=== PATIENT | male | born 1945 | race Hispanic/Latino ===

== ENCOUNTER 2020-06-08 08:03 | Inpatient (IN) | payer MEDICARE ==
[~2020-06-08] VITALS: Ht 162.6 cm; Wt 97.8 kg
[2020-06-08 08:38] LABS: BASOPHILS % (AUTO) 0.1 % (0.0-5.0); HEMATOCRIT 48.4 % (42-54); LYMPHOCYTES % (AUTO) 4.9 % (21.0-51.0); MEAN CORPUSCULAR HEMOGLOBIN 29.9 pg (27.0-33.0); MEAN CORPUSCULAR HGB CONC 33.9 g/dL (32.0-36.0); MEAN CORPUSCULAR VOLUME 88.3 fL (79-99); MONOCYTES % (AUTO) 8.4 % (3.0-13.0); NEUTROPHILS % (AUTO) 85.9 % (40.0-77.0); PLATELET COUNT (AUTO) 330 K/uL (130-400); RED BLOOD CELL COUNT(AUTO) 5.48 MIL/uL (4.50-6.20); RED CELL DISTRIBUTION WIDTH 13.2 % (11.0-15.5); WHITE BLOOD COUNT (AUTO) 15.1 K/uL (4.8-10.8)
[2020-06-08 08:48] LABS: INR 0.98 (0.85-1.15); PROTHROMBIN TIME 10.5 SEC (9.6-11.6)
[2020-06-08 08:51] LABS: ALBUMIN 2.8 g/dL (3.5-5.0); BILIRUBIN,TOTAL 1.1 mg/dL (0.2-1.0); CREATININE 0.9 mg/dL (0.5-1.5); TOTAL PROTEIN, SERUM 7.8 g/dL (6.0-8.3)
[2020-06-08 09:01] LABS: ABG BASE EXCESS 0.8 mmol/L (-2.0-3.0); ABG OXYGEN SATURATION 88.7 % (95.0-99.0); ABG PCO2 34 mmHg (35-48)
[2020-06-08] MEDS ORDERED: DEXAMETHASONE SOD PHOSPHATE 4 MG/ML 1ML VIAL ONE (10:39)
[2020-06-08] MEDS ORDERED: AZITHROMYCIN 500MG+NS 250ML 250 ML IV ONE (10:39)
[2020-06-08] MEDS ORDERED: ENOXAPARIN SODIUM 120 MG/0.8ML SQ ONE (10:41)
[2020-06-08] MEDS ORDERED: CEFTRIAXONE SODIUM 1 GM ONE (10:44)
[2020-06-08] MEDS ORDERED: CLONIDINE HCL 0.1 MG TABLET PO PRN (12:30)
[2020-06-08] MEDS ORDERED: ACETAMINOPHEN 325 MG TAB PO PRN (12:30)
[2020-06-08] MEDS ORDERED: ERGOCALCIFEROL (VITAMIN D2) 50,000 UNIT CAPSULE PO ONE (12:30)
[2020-06-08] MEDS ORDERED: ONDANSETRON HCL 4 MG/2 ML VIAL IVP PRN (12:30)
[2020-06-08] MEDS ORDERED: ACETAMINOPHEN 650 MG SUPPOSITORY RC PRN (12:30)
[2020-06-08] MEDS ORDERED: TEMAZEPAM 15 MG CAPSULE PO PRN (12:30)
[2020-06-08] MEDS ORDERED: PHARMACY COMMUNICATION MISC SCH (12:45)
[2020-06-08 13:05] LABS: CREATINE KINASE, TOTAL 290 U/L (21-232); MYOGLOBIN 333 ng/mL (10-92); TROPONIN I < 0.04 ng/mL (0.00-0.06)
[2020-06-08] MEDS ORDERED: COMPOUND IV REFRIGERATED 1 EACH IVSOLN MISC PRN (15:00)
[2020-06-08] MEDS ORDERED: REMDESIVIR (EUA) 520 200 MG in SODIUM CHLORIDE 0.9% 250 ML IV ONE (15:00)
[2020-06-08] MEDS ORDERED: FUROSEMIDE 20 MG TABLET ONE (15:28)
[2020-06-08 15:51] VITALS: BP 139/78
[2020-06-08] MEDS ORDERED: FUROSEMIDE 20 MG TABLET PO SCH (17:00)
[2020-06-08 19:23] LABS: CREATINE KINASE, TOTAL 325 U/L (21-232); MYOGLOBIN 310 ng/mL (10-92); TROPONIN I < 0.04 ng/mL (0.00-0.06)
[2020-06-08] MEDS ORDERED: ENOXAPARIN SODIUM 60 MG/0.6 ML SQ ONE (22:17)
[2020-06-08] MEDS ORDERED: METOPROLOL TARTRATE 25 MG TAB ONE (22:18)
[2020-06-09 01:58] LABS: CREATINE KINASE, TOTAL 307 U/L (21-232); MYOGLOBIN 244 ng/mL (10-92); TROPONIN I < 0.04 ng/mL (0.00-0.06)
[2020-06-09] MEDS ORDERED: PHARMACY COMMUNICATION MISC SCH (06:00)
[2020-06-09 07:34] LABS: HEMATOCRIT 50.5 % (42-54); MEAN CORPUSCULAR HEMOGLOBIN 29.6 pg (27.0-33.0); MEAN CORPUSCULAR HGB CONC 33.1 g/dL (32.0-36.0); MEAN CORPUSCULAR VOLUME 89.5 fL (79-99); PLATELET COUNT (AUTO) 364 K/uL (130-400); RED BLOOD CELL COUNT(AUTO) 5.64 MIL/uL (4.50-6.20); RED CELL DISTRIBUTION WIDTH 13.2 % (11.0-15.5); WHITE BLOOD COUNT (AUTO) 12.2 K/uL (4.8-10.8)
[2020-06-09] MEDS ORDERED: SODIUM CHLORIDE 0.9% 250 ML IV ONE (07:37)
[2020-06-09 08:09] LABS: B-TYPE NATRIURETIC PEPTIDE 41 pg/mL (0-100)
[2020-06-09] MEDS ORDERED: ASPIRIN 81MG TAB.CHEW ONE (08:14)
[2020-06-09] MEDS ORDERED: ENOXAPARIN SODIUM 60 MG/0.6 ML SQ ONE ×2 (08:14→22:04)
[2020-06-09] MEDS ORDERED: FUROSEMIDE 20 MG TABLET ONE (08:15)
[2020-06-09] MEDS ORDERED: DEXAMETHASONE SOD PHOSPHATE 10MG/ML 1ML VIAL ONE (08:15)
[2020-06-09] MEDS ORDERED: METOPROLOL TARTRATE 25 MG TAB ONE ×2 (08:15→22:05)
[2020-06-09] MEDS ORDERED: ZINC SULFATE 220 CAPSULE ONE (08:15)
[2020-06-09 08:19] LABS: CARBON DIOXIDE 29 mmol/L (21-32); CHLORIDE 101 mmol/L (101-111); CREATININE 0.9 mg/dL (0.5-1.5); GLOMERULAR FILTR. RATE CALC 87 mL/min (>60); GLUCOSE,RANDOM 113 mg/dL (70-105); LACTATE DEHYDROGENASE 362 U/L (81-234); SODIUM SERUM 138 mmol/L (136-145); UREA NITROGEN, BLOOD 25 mg/dL (7-18)
[2020-06-09] MEDS: ASCORBIC ACID 500 MG TAB PO SCH (09:00)
[2020-06-09] MEDS: ZINC SULFATE 220 CAPSULE PO SCH (09:00)
[2020-06-09] MEDS: ASPIRIN 81MG TAB.CHEW PO SCH (09:00)
[2020-06-09] MEDS ORDERED: DEXAMETHASONE 4 MG TAB PO SCH (09:00)
[2020-06-09 09:18] LABS: LYMPHOCYTES % (MANUAL) 7 % (22-44); MAN.DIFF COMMENT-IMPRESSION MANUAL DIFFERENTIAL; MONOCYTES % (MANUAL) 6 % (2-9); PLATELET MORPHOLOGY COMMENT ADEQUATE; SEGMENTED NEUTROPHILS % 87 % (40-70)
[2020-06-09] MEDS ORDERED: FUROSEMIDE 10 MG/ML 4ML VIAL ONE (11:14)
[2020-06-09] MEDS: FUROSEMIDE 10 MG/ML 4ML VIAL IV SCH ×2 (11:15→23:15)
[2020-06-09] MEDS: DEXAMETHASONE SOD PHOSPHATE 4 MG/ML 1ML VIAL IVP SCH ×2 (11:15→23:15)
[2020-06-09 11:41] LABS: ABG BASE EXCESS 2.6 mmol/L (-2.0-3.0); ABG HCO3 27.3 mmol/L (21.0-28.0); ABG OXYGEN SATURATION 92.3 % (95.0-99.0); ABG PCO2 42 mmHg (35-48)
[2020-06-09] MEDS ORDERED: CLONIDINE HCL 0.1 MG TABLET ONE (12:35)
[2020-06-09 16:29] LABS: ALBUMIN 2.6 g/dL (3.5-5.0); BILIRUBIN,DIRECT 0.2 mg/dL (0.0-0.3); BILIRUBIN,TOTAL 0.9 mg/dL (0.2-1.0); TOTAL PROTEIN, SERUM 7.6 g/dL (6.0-8.3)
[2020-06-09] MEDS ORDERED: DRONABINOL 2.5 MG CAP ONE (22:06)
[2020-06-10] MEDS ORDERED: FUROSEMIDE 10 MG/ML 4ML VIAL ONE ×2 (01:03→11:29)
[2020-06-10 06:50] LABS: ABG BASE EXCESS -0.4 mmol/L (-2.0-3.0); ABG HCO3 23.9 mmol/L (21.0-28.0); ABG OXYGEN SATURATION 88.1 % (95.0-99.0); ABG PCO2 39 mmHg (35-48)
[2020-06-10 07:35] LABS: HEMATOCRIT 47.6 % (42-54); MEAN CORPUSCULAR HEMOGLOBIN 31.9 pg (27.0-33.0); MEAN CORPUSCULAR HGB CONC 34.9 g/dL (32.0-36.0); MEAN CORPUSCULAR VOLUME 91.4 fL (79-99); RED BLOOD CELL COUNT(AUTO) 5.21 MIL/uL (4.50-6.20); RED CELL DISTRIBUTION WIDTH 13.2 % (11.0-15.5); WHITE BLOOD COUNT (AUTO) 14.8 K/uL (4.8-10.8)
[2020-06-10 07:52] LABS: CRP QUANTITATIVE 72.4 mg/L (0.00-9.0); POTASSIUM 3.8 mmol/L (3.5-5.1)
[2020-06-10] MEDS: ASPIRIN 81MG TAB.CHEW PO SCH (09:00)
[2020-06-10] MEDS: ZINC SULFATE 220 CAPSULE PO SCH (09:00)
[2020-06-10] MEDS: ASCORBIC ACID 500 MG TAB PO SCH (09:00)
[2020-06-10] MEDS ORDERED: ASPIRIN 81MG TAB.CHEW ONE (09:31)
[2020-06-10] MEDS ORDERED: ENOXAPARIN SODIUM 60 MG/0.6 ML SQ ONE (09:31)
[2020-06-10] MEDS ORDERED: METOPROLOL TARTRATE 25 MG TAB ONE (09:32)
[2020-06-10] MEDS ORDERED: ASCORBIC ACID 500 MG TAB ONE (09:32)
[2020-06-10] MEDS ORDERED: DRONABINOL 2.5 MG CAP ONE (09:32)
[2020-06-10] MEDS ORDERED: ZINC SULFATE 220 CAPSULE ONE (09:32)
[2020-06-10] MEDS: DEXAMETHASONE SOD PHOSPHATE 4 MG/ML 1ML VIAL IVP SCH ×2 (11:15→23:54)
[2020-06-10] MEDS: FUROSEMIDE 10 MG/ML 4ML VIAL IV SCH ×2 (11:15→23:53)
[2020-06-10] MEDS ORDERED: DEXAMETHASONE SOD PHOSPHATE 10MG/ML 1ML VIAL ONE (11:29)
[2020-06-10 13:43] LABS: ALBUMIN 2.8 g/dL (3.5-5.0); BILIRUBIN,DIRECT 0.3 mg/dL (0.0-0.3)
[2020-06-10] MEDS: REMDESIVIR (EUA) 520 100 MG in SODIUM CHLORIDE 0.9% 250 ML IV SCH ×2 (15:00→16:00)
[2020-06-10 19:52] VITALS: BP 137/60
[2020-06-10] MEDS: INSULIN HUMULIN R 100 UNIT/ML 3ML SQ SCH (20:09)
[2020-06-10] MEDS: DRONABINOL 2.5 MG CAP PO SCH (20:48)
[2020-06-10] MEDS: METOPROLOL TARTRATE 25 MG TAB PO SCH (20:49)
[2020-06-10] MEDS: ENOXAPARIN SODIUM 60 MG/0.6 ML SQ SCH (20:57)
[2020-06-10 23:43] VITALS: BP 143/67
[2020-06-11] VITALS (14 sets, daily range): BP systolic 96–149; BP diastolic 52–95
[2020-06-11 04:37] LABS: HEMATOCRIT 48.2 % (42-54); MEAN CORPUSCULAR HEMOGLOBIN 31.2 pg (27.0-33.0); MEAN CORPUSCULAR HGB CONC 34.4 g/dL (32.0-36.0); MEAN CORPUSCULAR VOLUME 90.6 fL (79-99); RED BLOOD CELL COUNT(AUTO) 5.32 MIL/uL (4.50-6.20); RED CELL DISTRIBUTION WIDTH 12.9 % (11.0-15.5); WHITE BLOOD COUNT (AUTO) 13.2 K/uL (4.8-10.8)
[2020-06-11 04:51] LABS: ABG BASE EXCESS 3.7 mmol/L (-2.0-3.0); ABG OXYGEN SATURATION 89.6 % (95.0-99.0); ABG PCO2 46 mmHg (35-48)
[2020-06-11 04:56] LABS: CREATININE 1.1 mg/dL (0.5-1.5); CRP QUANTITATIVE 84.6 mg/L (0.00-9.0)
[2020-06-11] MEDS: INSULIN HUMULIN R 100 UNIT/ML 3ML SQ SCH ×4 (06:15→20:35)
[2020-06-11] MEDS: ENOXAPARIN SODIUM 60 MG/0.6 ML SQ SCH ×2 (09:22→20:32)
[2020-06-11] MEDS: ZINC SULFATE 220 CAPSULE PO SCH (09:22)
[2020-06-11] MEDS: ASCORBIC ACID 500 MG TAB PO SCH (09:23)
[2020-06-11] MEDS: METOPROLOL TARTRATE 25 MG TAB PO SCH ×2 (09:23→20:38)
[2020-06-11] MEDS: ASPIRIN 81MG TAB.CHEW PO SCH (09:23)
[2020-06-11] MEDS: DRONABINOL 2.5 MG CAP PO SCH ×2 (09:23→20:46)
[2020-06-11] MEDS: FUROSEMIDE 10 MG/ML 4ML VIAL IV SCH (13:12)
[2020-06-11] MEDS: DEXAMETHASONE SOD PHOSPHATE 4 MG/ML 1ML VIAL IVP SCH ×2 (13:12→23:29)
[2020-06-11 13:19] LABS: ALBUMIN 2.7 g/dL (3.5-5.0); BILIRUBIN,DIRECT 0.2 mg/dL (0.0-0.3); TOTAL PROTEIN, SERUM 7.8 g/dL (6.0-8.3)
[2020-06-11] MEDS: REMDESIVIR (EUA) 520 100 MG in SODIUM CHLORIDE 0.9% 250 ML IV SCH (15:03)
[2020-06-11] MEDS: DEXMEDETOMIDINE HCL 400 MCG in SODIUM CHLORIDE 0.9% 100 ML IV SCH (15:03)
[2020-06-11] MEDS ORDERED: CLONAZEPAM 1 MG TABLET PO ONE (15:35)
[2020-06-11] MEDS: CLONAZEPAM 1 MG TABLET PO SCH (20:33)
[2020-06-12] VITALS (31 sets, daily range): BP systolic 102–140; BP diastolic 58–86
[2020-06-12 05:20] LABS: ABG BASE EXCESS 2.1 mmol/L (-2.0-3.0); ABG HCO3 27.1 mmol/L (21.0-28.0); ABG OXYGEN SATURATION 95.8 % (95.0-99.0); ABG PCO2 44 mmHg (35-48)
[2020-06-12] MEDS: INSULIN HUMULIN R 100 UNIT/ML 3ML SQ SCH ×4 (06:24→21:00)
[2020-06-12 06:47] LABS: BASOPHILS % (AUTO) 0.2 % (0.0-5.0); HEMATOCRIT 49.1 % (42-54); LYMPHOCYTES % (AUTO) 3.3 % (21.0-51.0); MEAN CORPUSCULAR HEMOGLOBIN 30.8 pg (27.0-33.0); MEAN CORPUSCULAR VOLUME 90.4 fL (79-99); MONOCYTES % (AUTO) 4.7 % (3.0-13.0); NEUTROPHILS % (AUTO) 91.1 % (40.0-77.0); PLATELET COUNT (AUTO) 406 K/uL (130-400); RED BLOOD CELL COUNT(AUTO) 5.43 MIL/uL (4.50-6.20); RED CELL DISTRIBUTION WIDTH 12.8 % (11.0-15.5); WHITE BLOOD COUNT (AUTO) 16.9 K/uL (4.8-10.8)
[2020-06-12 07:06] LABS: POTASSIUM 4.1 mmol/L (3.5-5.1)
[2020-06-12 07:17] LABS: ALBUMIN 2.4 g/dL (3.5-5.0); BILIRUBIN,TOTAL 1.3 mg/dL (0.2-1.0); MAGNESIUM 3.5 mg/dL (1.80-2.40); PHOSPHORUS 4.9 mg/dL (2.5-4.9); TOTAL PROTEIN, SERUM 7.5 g/dL (6.0-8.3)
[2020-06-12] MEDS: CLONAZEPAM 1 MG TABLET PO SCH ×2 (08:23→20:23)
[2020-06-12] MEDS: ASCORBIC ACID 500 MG TAB PO SCH (08:23)
[2020-06-12] MEDS: ASPIRIN 81MG TAB.CHEW PO SCH (08:23)
[2020-06-12] MEDS: DRONABINOL 2.5 MG CAP PO SCH ×2 (08:23→20:23)
[2020-06-12] MEDS: ZINC SULFATE 220 CAPSULE PO SCH (08:23)
[2020-06-12] MEDS: METOPROLOL TARTRATE 25 MG TAB PO SCH ×2 (08:23→21:00)
[2020-06-12] MEDS: ENOXAPARIN SODIUM 60 MG/0.6 ML SQ SCH ×2 (08:24→20:24)
[2020-06-12] MEDS: DEXAMETHASONE SOD PHOSPHATE 4 MG/ML 1ML VIAL IVP SCH ×2 (11:49→23:58)
[2020-06-12] MEDS: REMDESIVIR (EUA) 520 100 MG in SODIUM CHLORIDE 0.9% 250 ML IV SCH (15:00)
[2020-06-13] VITALS (21 sets, daily range): BP systolic 108–149; BP diastolic 46–84
[2020-06-13] MEDS: DEXMEDETOMIDINE HCL 400 MCG in SODIUM CHLORIDE 0.9% 100 ML IV SCH ×3 (00:17→17:25)
[2020-06-13 06:00] LABS: BASOPHILS % (AUTO) 0.2 % (0.0-5.0); HEMATOCRIT 48.2 % (42-54); MEAN CORPUSCULAR HGB CONC 35.7 g/dL (32.0-36.0); MEAN CORPUSCULAR VOLUME 92.3 fL (79-99); MONOCYTES % (AUTO) 3.4 % (3.0-13.0); NEUTROPHILS % (AUTO) 92.7 % (40.0-77.0); PLATELET COUNT (AUTO) 362 K/uL (130-400); RED BLOOD CELL COUNT(AUTO) 5.22 MIL/uL (4.50-6.20); RED CELL DISTRIBUTION WIDTH 13.4 % (11.0-15.5); WHITE BLOOD COUNT (AUTO) 17.4 K/uL (4.8-10.8)
[2020-06-13 06:21] LABS: ALBUMIN 2.4 g/dL (3.5-5.0); BILIRUBIN,TOTAL 1.1 mg/dL (0.2-1.0); CREATININE 1.2 mg/dL (0.5-1.5); MAGNESIUM 3.9 mg/dL (1.80-2.40); PHOSPHORUS 5.2 mg/dL (2.5-4.9); POTASSIUM 4.4 mmol/L (3.5-5.1); TOTAL PROTEIN, SERUM 7.6 g/dL (6.0-8.3)
[2020-06-13] MEDS: INSULIN HUMULIN R 100 UNIT/ML 3ML SQ SCH ×4 (06:34→21:00)
[2020-06-13] MEDS: METOPROLOL TARTRATE 25 MG TAB PO SCH ×2 (09:00→22:32)
[2020-06-13] MEDS: ENOXAPARIN SODIUM 60 MG/0.6 ML SQ SCH ×2 (09:47→22:36)
[2020-06-13] MEDS: ASCORBIC ACID 500 MG TAB PO SCH (09:48)
[2020-06-13] MEDS: DRONABINOL 2.5 MG CAP PO SCH ×2 (09:48→22:33)
[2020-06-13] MEDS: CLONAZEPAM 1 MG TABLET PO SCH ×2 (09:48→22:33)
[2020-06-13] MEDS: ASPIRIN 81MG TAB.CHEW PO SCH (09:48)
[2020-06-13] MEDS: ZINC SULFATE 220 CAPSULE PO SCH (09:48)
[2020-06-13] MEDS: DEXAMETHASONE SOD PHOSPHATE 4 MG/ML 1ML VIAL IVP SCH (11:52)
[2020-06-14] MEDS: DEXAMETHASONE SOD PHOSPHATE 4 MG/ML 1ML VIAL IVP SCH ×3 (00:56→22:28)
[2020-06-14 03:00] VITALS: BP 149/74
[2020-06-14 05:17] LABS: BASOPHILS % (AUTO) 0.2 % (0.0-5.0); HEMATOCRIT 47.4 % (42-54); LYMPHOCYTES % (AUTO) 3.4 % (21.0-51.0); MEAN CORPUSCULAR HEMOGLOBIN 33.8 pg (27.0-33.0); MEAN CORPUSCULAR HGB CONC 36.1 g/dL (32.0-36.0); MEAN CORPUSCULAR VOLUME 93.7 fL (79-99); MONOCYTES % (AUTO) 2.9 % (3.0-13.0); NEUTROPHILS % (AUTO) 92.6 % (40.0-77.0); PLATELET COUNT (AUTO) 427 K/uL (130-400); RED BLOOD CELL COUNT(AUTO) 5.06 MIL/uL (4.50-6.20); WHITE BLOOD COUNT (AUTO) 18.5 K/uL (4.8-10.8)
[2020-06-14 05:32] LABS: ALBUMIN 2.4 g/dL (3.5-5.0); CREATININE 1.2 mg/dL (0.5-1.5); MAGNESIUM 4.3 mg/dL (1.80-2.40); PHOSPHORUS 4.6 mg/dL (2.5-4.9); POTASSIUM 4.4 mmol/L (3.5-5.1); TOTAL PROTEIN, SERUM 7.9 g/dL (6.0-8.3)
[2020-06-14] MEDS: INSULIN HUMULIN R 100 UNIT/ML 3ML SQ SCH ×4 (06:48→20:19)
[2020-06-14 07:00] VITALS: BP 147/82
[2020-06-14] MEDS: METOPROLOL TARTRATE 25 MG TAB PO SCH ×2 (09:46→20:28)
[2020-06-14] MEDS: ASCORBIC ACID 500 MG TAB PO SCH (09:46)
[2020-06-14] MEDS: DRONABINOL 2.5 MG CAP PO SCH ×2 (09:46→20:28)
[2020-06-14] MEDS: ASPIRIN 81MG TAB.CHEW PO SCH (09:47)
[2020-06-14] MEDS: ZINC SULFATE 220 CAPSULE PO SCH (09:47)
[2020-06-14] MEDS: ENOXAPARIN SODIUM 60 MG/0.6 ML SQ SCH ×2 (09:48→20:29)
[2020-06-14] MEDS: CLONAZEPAM 1 MG TABLET PO SCH ×2 (09:49→20:28)
[2020-06-14 11:00] VITALS: BP_SYST 110; BP_SYST 141; BP_DIAS 65; BP_DIAS 88
[2020-06-14 15:00] VITALS: BP 130/67
[2020-06-14 19:00] VITALS: BP 150/77
[2020-06-14 23:00] VITALS: BP 147/77
[2020-06-15] VITALS (7 sets, daily range): BP systolic 142–175; BP diastolic 73–92
[2020-06-15 05:55] LABS: BASOPHILS % (AUTO) 0.1 % (0.0-5.0); HEMATOCRIT 48.2 % (42-54); LYMPHOCYTES % (AUTO) 3.4 % (21.0-51.0); MEAN CORPUSCULAR HEMOGLOBIN 33.5 pg (27.0-33.0); MEAN CORPUSCULAR HGB CONC 35.3 g/dL (32.0-36.0); MEAN CORPUSCULAR VOLUME 94.9 fL (79-99); MONOCYTES % (AUTO) 3.5 % (3.0-13.0); NEUTROPHILS % (AUTO) 92.3 % (40.0-77.0); PLATELET COUNT (AUTO) 412 K/uL (130-400); RED BLOOD CELL COUNT(AUTO) 5.08 MIL/uL (4.50-6.20); RED CELL DISTRIBUTION WIDTH 14.5 % (11.0-15.5); WHITE BLOOD COUNT (AUTO) 18.4 K/uL (4.8-10.8)
[2020-06-15] MEDS: INSULIN HUMULIN R 100 UNIT/ML 3ML SQ SCH ×4 (06:09→19:57)
[2020-06-15 06:22] LABS: ALBUMIN 2.3 g/dL (3.5-5.0); BILIRUBIN,TOTAL 1.1 mg/dL (0.2-1.0); CREATININE 1.1 mg/dL (0.5-1.5); MAGNESIUM 3.9 mg/dL (1.80-2.40); PHOSPHORUS 5.4 mg/dL (2.5-4.9); POTASSIUM 4.4 mmol/L (3.5-5.1); TOTAL PROTEIN, SERUM 7.8 g/dL (6.0-8.3)
[2020-06-15] MEDS: ENOXAPARIN SODIUM 60 MG/0.6 ML SQ SCH ×2 (07:52→20:10)
[2020-06-15] MEDS: CLONAZEPAM 1 MG TABLET PO SCH ×2 (07:53→20:09)
[2020-06-15] MEDS: ZINC SULFATE 220 CAPSULE PO SCH (07:53)
[2020-06-15] MEDS: METHYLPREDNISOLONE SOD SUCC 125MG/2ML VIAL IVP SCH ×2 (07:53→20:09)
[2020-06-15] MEDS: METOPROLOL TARTRATE 25 MG TAB PO SCH ×2 (07:54→20:09)
[2020-06-15] MEDS: DRONABINOL 2.5 MG CAP PO SCH ×2 (07:54→20:10)
[2020-06-15] MEDS: ASPIRIN 81MG TAB.CHEW PO SCH (07:54)
[2020-06-15] MEDS: ASCORBIC ACID 500 MG TAB PO SCH (07:54)
[2020-06-15] MEDS: DEXAMETHASONE SOD PHOSPHATE 4 MG/ML 1ML VIAL IVP SCH ×2 (12:10→23:17)
[2020-06-15] MEDS: LORAZEPAM 2 MG/ML 1 ML VIAL IVP PRN (16:17)
[2020-06-16 03:00] VITALS: BP 136/72
[2020-06-16 05:59] LABS: BASOPHILS % (AUTO) 0.1 % (0.0-5.0); HEMATOCRIT 49.4 % (42-54); LYMPHOCYTES % (AUTO) 3.1 % (21.0-51.0); MEAN CORPUSCULAR HEMOGLOBIN 33.3 pg (27.0-33.0); MEAN CORPUSCULAR HGB CONC 35.2 g/dL (32.0-36.0); MEAN CORPUSCULAR VOLUME 94.5 fL (79-99); MONOCYTES % (AUTO) 4.2 % (3.0-13.0); PLATELET COUNT (AUTO) 373 K/uL (130-400); RED BLOOD CELL COUNT(AUTO) 5.23 MIL/uL (4.50-6.20); RED CELL DISTRIBUTION WIDTH 13.9 % (11.0-15.5); WHITE BLOOD COUNT (AUTO) 14.2 K/uL (4.8-10.8)
[2020-06-16] MEDS: INSULIN HUMULIN R 100 UNIT/ML 3ML SQ SCH ×4 (06:20→20:07)
[2020-06-16 06:32] LABS: ALBUMIN 2.4 g/dL (3.5-5.0); BILIRUBIN,TOTAL 0.8 mg/dL (0.2-1.0); CREATININE 1.1 mg/dL (0.5-1.5); MAGNESIUM 3.7 mg/dL (1.80-2.40); PHOSPHORUS 4.5 mg/dL (2.5-4.9); POTASSIUM 4.1 mmol/L (3.5-5.1); TOTAL PROTEIN, SERUM 7.8 g/dL (6.0-8.3)
[2020-06-16 08:00] VITALS: BP 126/73
[2020-06-16] MEDS: ZINC SULFATE 220 CAPSULE PO SCH (09:15)
[2020-06-16] MEDS: CLONAZEPAM 1 MG TABLET PO SCH ×2 (09:15→20:03)
[2020-06-16] MEDS: ASCORBIC ACID 500 MG TAB PO SCH (09:16)
[2020-06-16] MEDS: METOPROLOL TARTRATE 25 MG TAB PO SCH ×2 (09:16→20:04)
[2020-06-16] MEDS: DRONABINOL 2.5 MG CAP PO SCH (09:16)
[2020-06-16] MEDS: ASPIRIN 81MG TAB.CHEW PO SCH (09:16)
[2020-06-16] MEDS: METHYLPREDNISOLONE SOD SUCC 125MG/2ML VIAL IVP SCH ×2 (09:16→20:03)
[2020-06-16] MEDS: ENOXAPARIN SODIUM 60 MG/0.6 ML SQ SCH ×2 (09:17→20:06)
[2020-06-16 11:00] VITALS: BP 127/66
[2020-06-16 16:38] VITALS: BP 150/76
[2020-06-16 19:08] VITALS: BP 150/89
[2020-06-16 23:26] VITALS: BP 154/86
[2020-06-17] VITALS (12 sets, daily range): BP systolic 95–138; BP diastolic 61–91
[2020-06-17] MEDS: LORAZEPAM 2 MG/ML 1 ML VIAL IVP PRN ×4 (00:50→18:27)
[2020-06-17 06:44] LABS: ALBUMIN 2.3 g/dL (3.5-5.0); BILIRUBIN,TOTAL 0.9 mg/dL (0.2-1.0); POTASSIUM 4.6 mmol/L (3.5-5.1); TOTAL PROTEIN, SERUM 7.5 g/dL (6.0-8.3)
[2020-06-17] MEDS: INSULIN HUMULIN R 100 UNIT/ML 3ML SQ SCH ×4 (07:05→21:00)
[2020-06-17] MEDS: DEXMEDETOMIDINE HCL 200 MCG in SODIUM CHLORIDE 0.9% 50 ML IV PRN ×3 (08:26→18:26)
[2020-06-17] MEDS: ZINC SULFATE 220 CAPSULE PO SCH (09:28)
[2020-06-17] MEDS: ENOXAPARIN SODIUM 60 MG/0.6 ML SQ SCH ×2 (09:29→21:59)
[2020-06-17] MEDS: METHYLPREDNISOLONE SOD SUCC 125MG/2ML VIAL IVP SCH ×2 (09:29→21:56)
[2020-06-17] MEDS: METOPROLOL TARTRATE 25 MG TAB PO SCH ×2 (09:29→21:00)
[2020-06-17] MEDS: CLONAZEPAM 1 MG TABLET PO SCH ×2 (09:30→21:00)
[2020-06-17] MEDS: ASPIRIN 81MG TAB.CHEW PO SCH (09:30)
[2020-06-17] MEDS: ASCORBIC ACID 500 MG TAB PO SCH (10:00)
[2020-06-17] MEDS ORDERED: HALOPERIDOL LACTATE 5 MG/ML VIAL IM SCH (10:45)
[2020-06-17] MEDS: DEXTROSE 5%-WATER 1,000 ML IV SCH (11:55)
[2020-06-18] VITALS (27 sets, daily range): BP systolic 91–150; BP diastolic 48–82
[2020-06-18] MEDS: DEXMEDETOMIDINE HCL 400 MCG in SODIUM CHLORIDE 0.9% 100 ML IV PRN ×2 (00:03→19:40)
[2020-06-18] MEDS: DEXTROSE 5%-WATER 1,000 ML IV SCH ×3 (00:06→14:52)
[2020-06-18 04:12] LABS: BASOPHILS % (AUTO) 0.1 % (0.0-5.0); HEMATOCRIT 49.5 % (42-54); LYMPHOCYTES % (AUTO) 3.1 % (21.0-51.0); MEAN CORPUSCULAR HEMOGLOBIN 30.4 pg (27.0-33.0); MEAN CORPUSCULAR HGB CONC 32.3 g/dL (32.0-36.0); MEAN CORPUSCULAR VOLUME 93.9 fL (79-99); MONOCYTES % (AUTO) 4.1 % (3.0-13.0); NEUTROPHILS % (AUTO) 92.2 % (40.0-77.0); PLATELET COUNT (AUTO) 269 K/uL (130-400); RED BLOOD CELL COUNT(AUTO) 5.27 MIL/uL (4.50-6.20); RED CELL DISTRIBUTION WIDTH 12.9 % (11.0-15.5); WHITE BLOOD COUNT (AUTO) 17.9 K/uL (4.8-10.8)
[2020-06-18 04:19] LABS: ALBUMIN 2.2 g/dL (3.5-5.0); BILIRUBIN,TOTAL 0.9 mg/dL (0.2-1.0); CREATININE 1.9 mg/dL (0.5-1.5); MAGNESIUM 3.9 mg/dL (1.80-2.40); POTASSIUM 5.3 mmol/L (3.5-5.1); TOTAL PROTEIN, SERUM 6.9 g/dL (6.0-8.3)
[2020-06-18 04:45] LABS: PLATELET MORPHOLOGY PLT CLUMPS PRESENT
[2020-06-18] MEDS: INSULIN HUMULIN R 100 UNIT/ML 3ML SQ SCH ×4 (07:30→20:51)
[2020-06-18] MEDS: ASPIRIN 81MG TAB.CHEW PO SCH (07:45)
[2020-06-18] MEDS: METOPROLOL TARTRATE 25 MG TAB PO SCH ×2 (07:45→20:33)
[2020-06-18] MEDS: CLONAZEPAM 1 MG TABLET PO SCH ×2 (07:45→20:33)
[2020-06-18] MEDS: ASCORBIC ACID 500 MG TAB PO SCH (07:46)
[2020-06-18] MEDS: ZINC SULFATE 220 CAPSULE PO SCH (07:46)
[2020-06-18] MEDS: METHYLPREDNISOLONE SOD SUCC 125MG/2ML VIAL IVP SCH ×2 (08:32→20:17)
[2020-06-18] MEDS: ENOXAPARIN SODIUM 60 MG/0.6 ML SQ SCH ×2 (08:32→20:32)
[2020-06-18] MEDS: LORAZEPAM 2 MG/ML 1 ML VIAL IVP PRN ×2 (10:40→20:17)
[2020-06-18 18:15] LABS: CREATININE 1.5 mg/dL (0.5-1.5); POTASSIUM 4.7 mmol/L (3.5-5.1)
[2020-06-19] VITALS (41 sets, daily range): BP systolic 69–197; BP diastolic 50–101
[2020-06-19] MEDS: DEXTROSE 5%-WATER 1,000 ML IV SCH ×3 (00:09→12:44)
[2020-06-19] MEDS: LORAZEPAM 2 MG/ML 1 ML VIAL IVP PRN (04:30)
[2020-06-19 06:01] LABS: HEMATOCRIT 48.3 % (42-54); MEAN CORPUSCULAR HEMOGLOBIN 29.4 pg (27.0-33.0); MEAN CORPUSCULAR HGB CONC 32.1 g/dL (32.0-36.0); MEAN CORPUSCULAR VOLUME 91.5 fL (79-99); RED BLOOD CELL COUNT(AUTO) 5.28 MIL/uL (4.50-6.20); RED CELL DISTRIBUTION WIDTH 12.5 % (11.0-15.5); WHITE BLOOD COUNT (AUTO) 15.9 K/uL (4.8-10.8)
[2020-06-19] MEDS: DEXMEDETOMIDINE HCL 400 MCG in SODIUM CHLORIDE 0.9% 100 ML IV PRN ×3 (06:08→17:55)
[2020-06-19 06:16] LABS: CREATININE 1.3 mg/dL (0.5-1.5); POTASSIUM 4.7 mmol/L (3.5-5.1)
[2020-06-19] MEDS: INSULIN HUMULIN R 100 UNIT/ML 3ML SQ SCH ×4 (06:24→21:00)
[2020-06-19] MEDS ORDERED: METOPROLOL TARTRATE 1 MG/ML 5ML VIAL IV ONE (08:22)
[2020-06-19] MEDS: METOPROLOL TARTRATE 1 MG/ML 5ML VIAL IV SCH ×3 (08:22→21:28)
[2020-06-19] MEDS: ASCORBIC ACID 500 MG TAB PO SCH (09:00)
[2020-06-19] MEDS: METHYLPREDNISOLONE SOD SUCC 125MG/2ML VIAL IVP SCH ×2 (09:00→21:25)
[2020-06-19] MEDS: ENOXAPARIN SODIUM 60 MG/0.6 ML SQ SCH ×2 (09:00→21:00)
[2020-06-19] MEDS: ZINC SULFATE 220 CAPSULE PO SCH (09:00)
[2020-06-19] MEDS: METOPROLOL TARTRATE 25 MG TAB PO SCH ×2 (09:00→21:00)
[2020-06-19] MEDS: CLONAZEPAM 1 MG TABLET PO SCH ×2 (09:00→21:00)
[2020-06-19] MEDS: ASPIRIN 81MG TAB.CHEW PO SCH (09:00)
[2020-06-19] MEDS ORDERED: M.V.I. IV [ADULT] 10 ML in CLINIMIX E 4.25%-5% SOLUTION 2,000 ML IV ONE (15:15)
[2020-06-19 15:20] LABS: ABG BASE EXCESS 0.5 mmol/L (-2.0-3.0); ABG HCO3 25.4 mmol/L (21.0-28.0); ABG OXYGEN SATURATION 91.2 % (95.0-99.0); ABG PCO2 42 mmHg (35-48)
[2020-06-19] MEDS ORDERED: AMIODARONE HCL 150 MG in DEXTROSE 5%-WATER 100 ML IV SCH (16:30)
[2020-06-19] MEDS ORDERED: FAT EMULSIONS 20% 250ML 250 ML IV SCH (17:00)
[2020-06-19] MEDS ORDERED: OXYMETAZOLINE HCL SPRAY 15 ML BOTTLE EN SCH (17:30)
[2020-06-19] MEDS ORDERED: AMIODARONE HCL 360 MG in DEXTROSE 5%-WATER 200 ML IV SCH (18:30)
[2020-06-20] MEDS ORDERED: AMIODARONE HCL 450 MG in DEXTROSE 5%-WATER 250 ML IV SCH (00:30)
[2020-06-20 01:00] VITALS: BP 143/68
[2020-06-20 01:50] VITALS: BP 131/58
[2020-06-20 02:20] VITALS: BP 119/65
[2020-06-20 03:00] VITALS: BP 119/71
[2020-06-20] MEDS: DEXMEDETOMIDINE HCL 400 MCG in SODIUM CHLORIDE 0.9% 100 ML IV PRN (03:00)
[2020-06-20 03:59] VITALS: BP 192/118
[2020-06-20] MEDS: METOPROLOL TARTRATE 1 MG/ML 5ML VIAL IV SCH (03:59)
== END 2020-06-20 05:47 | disposition expired | DRG 177 ==
LOC: EDH 08:03 → EDHIP 12:22 → 2AH 06-10 15:14 → 2CV 06-11 16:23 → 2AH 06-13 17:30 → 2CV 06-17 07:30
PROVIDERS: ADMIT Internal Medicine Pulmonary Disease; ATTEND Internal Medicine Pulmonary Disease
PROC: 5A09457 Assistance with Respiratory Ventilation, 24-96 Consecutive Hours, Continuous Positive Airway Pressure (ICD-10-PCS; principal; 2020-06-08)
PROC: XW033E5 Introduction of Remdesivir Anti-infective into Peripheral Vein, Percutaneous Approach, New Technology Group 5 (ICD-10-PCS; 2020-06-08)
PROC: XW13325 Transfusion of Convalescent Plasma (Nonautologous) into Peripheral Vein, Percutaneous Approach, New Technology Group 5 (ICD-10-PCS; 2020-06-09)
PROC: 5A09557 Assistance with Respiratory Ventilation, Greater than 96 Consecutive Hours, Continuous Positive Airway Pressure (ICD-10-PCS; 2020-06-14)
DX: U07.1 COVID-19 (principal); J96.01 Acute respiratory failure with hypoxia; J69.0 Pneumonitis due to inhalation of food and vomit; J12.9 Viral pneumonia, unspecified; I25.10 Atherosclerotic heart disease of native coronary artery without angina pectoris; E66.9 Obesity, unspecified; E78.5 Hyperlipidemia, unspecified; R45.1 Restlessness and agitation; I10 Essential (primary) hypertension; Z66 Do not resuscitate; Z79.899 Other long term (current) drug therapy; Z87.891 Personal history of nicotine dependence; Z68.37 Body mass index [BMI] 37.0-37.9, adult
CPT/HCPCS: 36415; 36600; 71045; 71250; 80048; 80053; 80076; 82248; 82550; 82728; 82803; 82948; 83605; 83615; 83735; 83874; 83880; 84100; 84145; 84484; 85025; 85027; 85378; 85610; 85730; 86140; 86900; 86901; 86927; 87040; 87426; 87804; 93005; 94660; G0378; J0282; J0456; J0696; J1100; J1630; J1650; J1815; J1940; J2060; J2930; J3490; J7050; J7060; J7070; Q0167